=== PATIENT | female | born 1945 | race Caucasian/White ===

== ENCOUNTER 2019-05-29 15:07 | Outpatient (CLI) | payer MEDICARE, BC | END 2019-05-29 15:08 | disposition home or self-care (01) | LOC: BICMAMMO 15:07 | PROVIDERS: ATTEND Family Medicine | DX: Z53.9 Procedure and treatment not carried out, unspecified reason (principal) | CPT/HCPCS: 77080 ==

== ENCOUNTER 2019-06-13 12:57 | Outpatient (CLI) | payer MEDICARE, BC ==
--- NOTE | 2019-06-13 13:23 | RAD ---
EXAM: Right foot 3 views: HISTORY: Right foot pain and swelling COMPARISON: None FINDINGS: Minimal dorsal soft tissue swelling. Degenerative changes. No acute fracture or dislocation or other significant acute osseous abnormality. IMPRESSION: No significant acute process.
== END 2019-06-13 12:58 | disposition home or self-care (01) ==
LOC: BICRAD 12:57
PROVIDERS: ATTEND Physician Assistant
DX: M79.671 Pain in right foot (principal); M79.89 Other specified soft tissue disorders
CPT/HCPCS: 36415; 82306; 82607; 82746; 84439; 84443; 84481

== ENCOUNTER 2019-12-10 05:48 | Day surgery (SDC) | payer MEDICARE, BC ==
[2019-12-07 08:59] VITALS: BMI 25.9
[2019-12-10] MEDS ORDERED: Heparin 5,000 UNITS/ML VIAL ONE (06:21)
[2019-12-10] MEDS ORDERED: Fentanyl 250 MCG/5 ML VIAL ONE (06:25)
[2019-12-10] MEDS ORDERED: Lidocaine 1% w/Epinephrine 1:100K 20 ML VIAL ONE (06:28)
[2019-12-10] MEDS ORDERED: Gentamicin 80 MG/2 ML VIAL ONE (06:28)
[2019-12-10] MEDS ORDERED: EPINEPHrine 1 MG/ML AMP ONE ×2 (06:28→07:56)
[2019-12-10] MEDS ORDERED: Bupivacaine 0.25% HCL 30 ML VIAL ONE (06:28)
[2019-12-10] MEDS ORDERED: Sodium Chloride 0.9% 20 ML ONE (06:30)
[2019-12-10] MEDS ORDERED: PROPOFOL 20 ML ONE (07:11)
[2019-12-10] MEDS ORDERED: Lidocaine 1% PF 5 ML VIAL ONE (10:08)
[2019-12-10] MEDS ORDERED: Ondansetron PF 4 MG/2 ML Vial ONE (10:08)
[2019-12-10] MEDS ORDERED: PROPOFOL 200 MG/20 ML VIAL ONE (10:08)
[2019-12-10] MEDS ORDERED: Dexamethasone 20 MG/5 ML VIAL ONE (10:08)
[2019-12-10] MEDS ORDERED: EPHEDRINE 25 MG/5 ML SYRINGE ONE (10:08)
[2019-12-10] MEDS ORDERED: Rocuronium Bromide 10 MG/ML (10ML VIAL) ONE (10:08)
--- NOTE | 2019-12-11 09:04 | OP ---
DATE OF PROCEDURE: 12/10/2019 PREOPERATIVE DIAGNOSES: 1. Status post breast cancer. 2. Status post breast cancer reconstruction. 3. Disproportion of breast reconstruction. PROCEDURES PERFORMED: 1. Bilateral internal Joni flaps 30 cm2 (10908). 2. Right breast reconstruction fat grafting (120 mL). 3. Left breast fat grafting (100 mL). DESCRIPTION OF PROCEDURE: Following induction of adequate anesthesia, the patient was prepped and draped in usual sterile fashion in supine position. Attention was turned to the right breast reconstruction. The patient then developed pseudoptosis with overextension of the inferiror pole of the breast and descent of the inframammary crease. This was corrected by de-epithelializing a 3 x 10 ellipsed tissue on the inferior pole of the breast. The de-epithelialized tissue was then advanced superiorly to recreate a new inframammary crease with 2-0 PD interrupted and running 2-0 PDS suture in deeper layers. Defect was closed with 3-0 PDS suture and 3-0 Monocryl suture. Similar procedure was done on the left breast. The upper pole of the patient's breast with overextension in the superolateral and superomedial as well as central quadrant areas. Approximately 300 mL fat was harvested. This was allowed to decant at which time it was and injected with a micro-droplet technique around the periphery of the breast. This was done through a series of stab incisions. Similar technique was used on the contralateral breast. The patient tolerated procedure well. Job ID: [id number] [facility]
== END 2019-12-10 11:50 | disposition home or self-care (01) ==
LOC: SDC 05:48
PROVIDERS: ATTEND Plastic Surgery
PROC: 0JX60ZB Transfer Chest Subcutaneous Tissue and Fascia with Skin and Subcutaneous Tissue, Open Approach (ICD-10-PCS; principal; 2019-12-10)
DX: N65.1 Disproportion of reconstructed breast (principal); E78.00 Pure hypercholesterolemia, unspecified; Z87.891 Personal history of nicotine dependence; Z79.811 Long term (current) use of aromatase inhibitors; Z79.899 Other long term (current) drug therapy
CPT/HCPCS: J0171; J0690; J1100; J1580; J1644; J2001; J2405; J2704; J3010; J3370; J3490; S0020

== ENCOUNTER 2021-01-24 18:26 | Emergency (ER) | payer MEDICARE, BC ==
[~2021-01-24 18:26] MED LIST: Iopamidol-370 76% 500 ML 1 ML ONE
[2021-01-24 19:07] LABS: #Basophils 0.1 thou/uL (0.0-0.2); #Eosinphils 0.1 thou/uL (0.0-0.7); #Lymphocytes 2.5 thou/uL (1.20-3.40); #Monocytes 1.2 thou/uL (0.11-0.59); #Neutrophils 9.1 thou/uL (1.40-6.50); %Basophils 0.4 % (0.0-1.0); %Eosinophils 0.9 % (0.0-10.0); %Lymphocytes 19.3 % (21.0-51.0); %Monocytes 9.3 % (0.0-10.0); %Neutrophils 70.1 % (42.0-75.0); Hemoglobin 13.2 g/dL (12.0-16.0); Mean Corpuscular HGB CONC 33.3 g/dL (32.0-36.0); Mean Corpuscular Hemoglobin 31.1 pg (27.0-31.0); Mean Corpuscular Volume 93.5 fL (78.0-98.0); Mean Platelet Volume 8.5 fL (7.4-10.4); Platelet Count 255 thou/uL (130-400); RBC Distribution Width 11.9 % (11.5-14.5); Red Blood Cell (RBC) Count 4.24 mill/uL (4.20-5.40); White Blood Cell (WBC) Count 12.9 thou/uL (4.8-10.8)
[2021-01-24] MEDS ORDERED: Ondansetron PF 4 MG/2 ML Vial ONE (19:21)
[2021-01-24] MEDS ORDERED: Morphine 4 MG/ML VIAL ONE (19:21)
[2021-01-24 19:35] LABS: ALT (SGPT) 59 U/L (8-55); AST (SGOT) 120 U/L (5-34); Albumin 4.3 g/dL (3.4-4.8); Alkaline Phosphatase 114 U/L (40-110); Anion Gap 16 mmol/L (10-20); BUN (Urea Nitrogen) 12 mg/dL (9.8-20.1); Bilirubin, Total 0.9 mg/dL (0.2-1.2); Calc. Creatinine Clearance 0 mL/min (70-130); Carbon Dioxide 20 mmol/L (23-31); Chloride 105 mmol/L (98-107); Globulin 3.5 g/dL (2.4-3.5); Glucose 104 mg/dL (83-110); Lipase 56 U/L (8-78); Potassium 4.9 mmol/L (3.5-5.1); Protein, Total 7.8 g/dL (5.8-8.1); Sodium 136 mmol/L (136-145)
[2021-01-24 19:46] LABS: Bilirubin Negative (Negative); Blood, Urine Negative (Negative); Clarity Clear (Clear); Glucose, Urine (Dipstick) Normal (Negative); Ketone, Urine Negative (Negative); Leukocyte Negative Leu/uL (Negative); Nitrite Negative (Negative); Protein, Urine (Dipstick) Negative (Neg-Trace); Specific Gravity, Urine 1.017 (1.002-1.036); Urobilinogen Normal mg/dL (Less than 2); pH, Urine 6.5 (5.0-9.0)
== END 2021-01-24 20:36 | disposition home or self-care (01) ==
LOC: ERS 18:26
DX: K52.9 Noninfective gastroenteritis and colitis, unspecified (principal)
CPT/HCPCS: 74177; 80053; 81003; 83690; 85025; 96374; 96375; J2270; J2405; Q9967

== ENCOUNTER 2021-03-30 09:56 | Outpatient (CLI) | payer MEDICARE, BC | END 2021-03-30 09:57 | disposition home or self-care (01) | LOC: BICCT 09:56 | PROVIDERS: ATTEND Urology | DX: R31.29 Other microscopic hematuria (principal); N13.5 Crossing vessel and stricture of ureter without hydronephrosis; N28.1 Cyst of kidney, acquired | CPT/HCPCS: 74178; Q9967 ==

== ENCOUNTER 2021-04-03 10:07 | Emergency (ER) | payer MEDICARE, BC ==
[2021-04-03] MEDS ORDERED: Iopamidol-370 76% 500 ML 1 ML ONE (11:04)
[2021-04-03 11:07] LABS: #Eosinphils 0.1 thou/uL (0.0-0.7); #Lymphocytes 2.1 thou/uL (1.20-3.40); #Monocytes 0.7 thou/uL (0.11-0.59); #Neutrophils 3.6 thou/uL (1.40-6.50); %Basophils 0.3 % (0.0-1.0); %Eosinophils 1.5 % (0.0-10.0); %Lymphocytes 32.3 % (21.0-51.0); %Monocytes 10.3 % (0.0-10.0); %Neutrophils 55.6 % (42.0-75.0); Hemoglobin 13.4 g/dL (12.0-16.0); Mean Corpuscular HGB CONC 34.6 g/dL (32.0-36.0); Mean Corpuscular Hemoglobin 32.7 pg (27.0-31.0); Mean Corpuscular Volume 94.5 fL (78.0-98.0); Mean Platelet Volume 7.6 fL (7.4-10.4); Platelet Count 269 thou/uL (130-400); RBC Distribution Width 11.8 % (11.5-14.5); White Blood Cell (WBC) Count 6.5 thou/uL (4.8-10.8)
[2021-04-03] MEDS ORDERED: Morphine 4 MG/ML VIAL ONE (11:13)
[2021-04-03] MEDS ORDERED: Ondansetron PF 4 MG/2 ML Vial ONE (11:13)
[2021-04-03 11:28] LABS: ALT (SGPT) 29 U/L (8-55); AST (SGOT) 28 U/L (5-34); Albumin 4.3 g/dL (3.4-4.8); Alkaline Phosphatase 102 U/L (40-110); Anion Gap 12 mmol/L (10-20); BUN (Urea Nitrogen) 12 mg/dL (9.8-20.1); Bilirubin, Total 0.5 mg/dL (0.2-1.2); Calc. Creatinine Clearance 0 mL/min (70-130); Calcium 9.2 mg/dL (7.8-10.44); Carbon Dioxide 26 mmol/L (23-31); Chloride 103 mmol/L (98-107); Globulin 2.8 g/dL (2.4-3.5); Glucose 96 mg/dL (83-110); Lipase 35 U/L (8-78); Potassium 4.4 mmol/L (3.5-5.1); Protein, Total 7.1 g/dL (5.8-8.1); Sodium 137 mmol/L (136-145)
[2021-04-03 12:29] LABS: Bilirubin Negative (Negative); Blood, Urine Negative (Negative); Clarity Clear (Clear); Glucose, Urine (Dipstick) Normal (Negative); Ketone, Urine Negative (Negative); Leukocyte Negative Leu/uL (Negative); Nitrite Negative (Negative); Protein, Urine (Dipstick) Negative (Neg-Trace); Urobilinogen Normal mg/dL (Less than 2)
== END 2021-04-03 13:16 | disposition home or self-care (01) ==
LOC: ERS 10:07
DX: K85.90 Acute pancreatitis without necrosis or infection, unspecified (principal)
CPT/HCPCS: 36415; 74177; 80053; 81003; 83690; 84478; 85025; 96374; 96375; J2270; J2405

== ENCOUNTER 2021-04-06 10:36 | Outpatient (CLI) | payer MEDICARE, BC | END 2021-04-06 10:37 | disposition home or self-care (01) | LOC: NM 10:36 | PROVIDERS: ATTEND Urology | DX: N13.5 Crossing vessel and stricture of ureter without hydronephrosis (principal) | CPT/HCPCS: 78708; A4641; A9562 ==

== ENCOUNTER 2021-05-07 07:12 | Day surgery (SDC) | payer MEDICARE, BC ==
[2021-05-06 14:03] VITALS: BMI 24.3
[2021-05-07] MEDS ORDERED: Acetaminophen 500 MG TAB ONE (07:53)
[2021-05-07] MEDS ORDERED: Ketorolac Tromethamine 30 MG/ML VIAL ONE (07:53)
[2021-05-07] MEDS ORDERED: Bupivacaine 0.25% HCL 30 ML VIAL ONE (08:23)
[2021-05-07] MEDS ORDERED: EPINEPHrine 1 MG/ML AMP ONE (08:23)
[2021-05-07] MEDS ORDERED: Fentanyl 100 MCG/2 ML VIAL ONE ×3 (10:29→12:12)
[2021-05-07] MEDS ORDERED: Lidocaine 2% Jelly 5 ML TUBE ONE (10:29)
[2021-05-07] MEDS ORDERED: Rocuronium Bromide 10 MG/ML (10ML VIAL) ONE (10:46)
[2021-05-07] MEDS ORDERED: PROPOFOL 200 MG/20 ML VIAL ONE (10:46)
[2021-05-07] MEDS ORDERED: Dexamethasone 20 MG/5 ML VIAL ONE (10:46)
[2021-05-07] MEDS ORDERED: Ondansetron PF 4 MG/2 ML Vial ONE ×2 (10:46→12:12)
[2021-05-07] MEDS ORDERED: Glycopyrrolate 0.2 MG/ML 5 ML SYRINGE ONE (10:46)
[2021-05-07] MEDS ORDERED: Lidocaine 1% PF 5 ML VIAL ONE (10:46)
== END 2021-05-07 13:55 | disposition home or self-care (01) ==
LOC: SDC 07:12
PROVIDERS: ATTEND Specialist
PROC: 0FT44ZZ Resection of Gallbladder, Percutaneous Endoscopic Approach (ICD-10-PCS; principal; 2021-05-07)
DX: K80.10 Calculus of gallbladder with chronic cholecystitis without obstruction (principal); Z79.811 Long term (current) use of aromatase inhibitors; Z79.899 Other long term (current) drug therapy
CPT/HCPCS: 88304; J0171; J0690; J1100; J1885; J2405; J2704; J3010; S0020

== ENCOUNTER 2021-07-16 11:29 | Outpatient (CLI) | payer MEDICARE, BC | END 2021-07-16 11:30 | disposition home or self-care (01) | LOC: BICRAD 11:29 | PROVIDERS: ATTEND Physician Assistant | DX: M25.512 Pain in left shoulder (principal); M79.622 Pain in left upper arm; M89.8X1 Other specified disorders of bone, shoulder ==

== ENCOUNTER 2021-08-10 14:43 | Outpatient (CLI) | payer MEDICARE, BC | END 2021-08-10 14:44 | disposition home or self-care (01) | LOC: BICRAD 14:43 | PROVIDERS: ATTEND Family Medicine | DX: M54.2 Cervicalgia (principal); R05.3 Chronic cough; M47.812 Spondylosis without myelopathy or radiculopathy, cervical region; M48.07 Spinal stenosis, lumbosacral region | CPT/HCPCS: 72052 ==

== ENCOUNTER 2021-10-28 14:33 | Outpatient (CLI) | payer MEDICARE, BC | END 2021-10-28 14:34 | disposition home or self-care (01) | LOC: ULT 14:33 | PROVIDERS: ATTEND Urology | DX: N28.1 Cyst of kidney, acquired (principal) | CPT/HCPCS: 76770 ==

== ENCOUNTER 2022-03-20 11:37 | Emergency (ER) | payer MEDICARE, BC ==
[2022-03-20 12:20] LABS: Hemoglobin 13.9 g/dL (12.0-16.0); Mean Corpuscular HGB CONC 32.9 g/dL (32.0-36.0); Mean Corpuscular Hemoglobin 31.2 pg (27.0-31.0); Mean Platelet Volume 7.5 fL (7.4-10.4); Platelet Count 252 thou/uL (130-400); RBC Distribution Width 12.2 % (11.5-14.5); Red Blood Cell (RBC) Count 4.44 mill/uL (4.20-5.40)
[2022-03-20 12:27] LABS: PTT 30.8 sec (22.9-36.1)
[2022-03-20 12:34] LABS: Band 7 % (5-11); Eosinophils 1 % (0-10); Lymphocytes 4 % (21-51); MDiff Complete? YES; Monocytes 5 % (0-10); Neutrophil 82 % (42-75); Platelet Morphology Comment Appears Adequate; RBC Morphology Normal; Reactive Lymphocytes 1 % (0-10)
[2022-03-20 12:35] LABS: Bacteria/HPF None Seen HPF (None Seen); Bilirubin Negative (Negative); Blood, Urine Trace (Negative); Clarity Clear (Clear); Glucose, Urine (Dipstick) Normal (Negative); Ketone, Urine Negative (Negative); Leukocyte 75 Leu/uL (Negative); Nitrite Negative (Negative); Protein, Urine (Dipstick) 20 mg/dL (Neg-Trace); RBC/HPF 0-3 HPF (0-3); Specific Gravity, Urine 1.022 (1.002-1.036); Squamous Epithelial 0-3 HPF (0-3); Urobilinogen Normal mg/dL (Less than 2); pH, Urine 6.5 (5.0-9.0)
[2022-03-20 12:38] LABS: ALT (SGPT) 20 U/L (8-55); AST (SGOT) 21 U/L (5-34); Alkaline Phosphatase 90 U/L (40-110); Anion Gap 16 mmol/L (10-20); BUN (Urea Nitrogen) 14 mg/dL (9.8-20.1); Bilirubin, Total 1.5 mg/dL (0.2-1.2); Calc. Creatinine Clearance 0 mL/min (70-130); Carbon Dioxide 20 mmol/L (23-31); Chloride 101 mmol/L (98-107); Globulin 3.4 g/dL (2.4-3.5); Glucose 123 mg/dL (83-110); Potassium 3.8 mmol/L (3.5-5.1); Protein, Total 7.4 g/dL (5.8-8.1); Sodium 133 mmol/L (136-145)
[2022-03-20] MEDS ORDERED: Ketorolac Tromethamine 30 MG/ML VIAL ONE (12:42)
[2022-03-20] MEDS ORDERED: Acetaminophen 500 MG TAB ONE (12:42)
[2022-03-20 16:27] LABS: Lactic Acid 2.6 mmol/L (0.5-2.2)
[2022-03-20 21:26] LABS: SARS-CoV-2 NAA Rapid Test Not Detected (NotDetected)
== END 2022-03-20 16:25 | disposition home or self-care (01) ==
LOC: ERS 11:37
DX: B34.9 Viral infection, unspecified (principal); K21.9 Gastro-esophageal reflux disease without esophagitis; Z79.899 Other long term (current) drug therapy; Z20.822 Contact with and (suspected) exposure to COVID-19
CPT/HCPCS: 0240U; 71045; 80053; 83605; 85025; 85610; 85730; 87040; 87081; 87086; 87430; 93005; 94760; 36415; 81003; 81015; 96374; J1885

== ENCOUNTER 2022-03-24 12:24 | Outpatient (CLI) | payer MEDICARE, BC ==
[~2022-03-24 12:24] MED LIST changes: +Iopamidol 370 76% 100 ML VIAL ONE; -Iopamidol-370 76% 500 ML 1 ML ONE
== END 2022-03-24 12:25 | disposition home or self-care (01) ==
LOC: CT 12:24
PROVIDERS: ATTEND Nurse Practitioner Family
DX: R10.32 Left lower quadrant pain (principal); R50.9 Fever, unspecified; R31.9 Hematuria, unspecified; D72.828 Other elevated white blood cell count; R79.89 Other specified abnormal findings of blood chemistry
CPT/HCPCS: 74178; 80053; 81001; 85025; 87086; Q9967

== ENCOUNTER 2022-05-04 14:28 | Outpatient (CLI) | payer MEDICARE, BC | END 2022-05-04 14:29 | disposition home or self-care (01) | LOC: BICMAMMO 14:28 | PROVIDERS: ATTEND Plastic Surgery | DX: N63.24 Unspecified lump in the left breast, lower inner quadrant (principal); Z85.3 Personal history of malignant neoplasm of breast | CPT/HCPCS: 77066; G0279 ==

== ENCOUNTER 2022-05-10 09:33 | Outpatient (CLI) | payer MEDICARE, BC ==
[~2022-05-10 09:33] MED LIST changes: -Iopamidol 370 76% 100 ML VIAL ONE; +Iopamidol-370 76% 500 ML 1 ML ONE
== END 2022-05-10 09:34 | disposition home or self-care (01) ==
LOC: BICCT 09:33
PROVIDERS: ATTEND Urology
DX: N28.1 Cyst of kidney, acquired (principal)
CPT/HCPCS: 74170; 82565; Q9967

== ENCOUNTER 2022-05-11 13:29 | Outpatient (CLI) | payer MEDICARE, BC | END 2022-05-11 13:30 | disposition home or self-care (01) | LOC: BICMRI 13:29 | PROVIDERS: ATTEND Plastic Surgery | DX: R92.8 Other abnormal and inconclusive findings on diagnostic imaging of breast (principal); N63.20 Unspecified lump in the left breast, unspecified quadrant | CPT/HCPCS: A9577; C8908 ==

== ENCOUNTER 2022-08-30 09:52 | Outpatient (CLI) | payer MEDICARE, BC | END 2022-08-30 09:53 | disposition home or self-care (01) | LOC: EKG 09:52 | PROVIDERS: ATTEND Otolaryngology Plastic Surgery within the Head & Neck | DX: H90.A31 Mixed conductive and sensorineural hearing loss, unilateral, right ear with restricted hearing on the contralateral side (principal) | CPT/HCPCS: 93005; 93010 ==

== ENCOUNTER 2022-11-04 15:27 | Outpatient (CLI) | payer MEDICARE, BC | END 2022-11-04 15:28 | disposition home or self-care (01) | LOC: ULT 15:27 | PROVIDERS: ATTEND Family Medicine | DX: R79.1 Abnormal coagulation profile (principal) ==

== ENCOUNTER 2022-11-16 15:14 | Outpatient (CLI) | payer MEDICARE, BC | END 2022-11-16 15:15 | disposition home or self-care (01) | LOC: RAD 15:14 | PROVIDERS: ATTEND Internal Medicine Rheumatology | DX: R06.02 Shortness of breath (principal); M35.00 Sjogren syndrome, unspecified; M54.50 Low back pain, unspecified; M47.816 Spondylosis without myelopathy or radiculopathy, lumbar region; J98.4 Other disorders of lung; Z86.11 Personal history of tuberculosis | CPT/HCPCS: 71046; 72100 ==

== ENCOUNTER 2022-12-13 14:53 | Outpatient (CLI) | payer MEDICARE, BC | END 2022-12-13 14:54 | disposition home or self-care (01) | LOC: BICRAD 14:53 | PROVIDERS: ATTEND Internal Medicine Rheumatology | DX: M25.531 Pain in right wrist (principal); M25.532 Pain in left wrist ==

== ENCOUNTER 2023-01-26 10:39 | Outpatient (CLI) | payer MEDICARE, BC | END 2023-01-26 10:40 | disposition home or self-care (01) | LOC: BICMAMMO 10:39 | PROVIDERS: ATTEND Internal Medicine Hematology & Oncology | DX: Z13.820 Encounter for screening for osteoporosis (principal); C50.811 Malignant neoplasm of overlapping sites of right female breast; T38.6X5A Adverse effect of antigonadotrophins, antiestrogens, antiandrogens, not elsewhere classified, initial encounter; M85.89 Other specified disorders of bone density and structure, multiple sites | CPT/HCPCS: 77080 ==

== ENCOUNTER 2023-05-09 11:19 | Outpatient (CLI) | payer MEDICARE, BC | END 2023-05-09 11:20 | disposition home or self-care (01) | LOC: BICCT 11:19 | PROVIDERS: ATTEND Urology | DX: N13.5 Crossing vessel and stricture of ureter without hydronephrosis (principal); N28.1 Cyst of kidney, acquired; R31.29 Other microscopic hematuria; J81.1 Chronic pulmonary edema | CPT/HCPCS: 74178; 82565 ==

== ENCOUNTER 2023-11-17 13:23 | Outpatient (CLI) | payer MEDICARE, BC | END 2023-11-17 13:24 | disposition home or self-care (01) | LOC: MRI 13:23 | PROVIDERS: ATTEND Family Medicine | DX: R42 Dizziness and giddiness (principal) | CPT/HCPCS: 70553 ==

== ENCOUNTER 2024-04-03 13:52 | Outpatient (CLI) | payer MEDICARE, BC | END 2024-04-03 13:53 | disposition home or self-care (01) | LOC: BICRAD 13:52 | DX: M62.838 Other muscle spasm (principal); M47.812 Spondylosis without myelopathy or radiculopathy, cervical region | CPT/HCPCS: 72050 ==

== ENCOUNTER 2024-04-18 13:48 | Outpatient (CLI) | payer MEDICARE, BC | END 2024-04-18 13:49 | disposition home or self-care (01) | LOC: ULT 13:48 | PROVIDERS: ATTEND Otolaryngology Plastic Surgery within the Head & Neck | DX: E04.2 Nontoxic multinodular goiter (principal) | CPT/HCPCS: 76536 ==

== ENCOUNTER 2024-05-02 10:56 | Outpatient (CLI) | payer MEDICARE, BC | END 2024-05-02 10:57 | disposition home or self-care (01) | LOC: BICCT 10:56 | PROVIDERS: ATTEND Urology | DX: N28.1 Cyst of kidney, acquired (principal); R31.29 Other microscopic hematuria | CPT/HCPCS: 74178; 82565 ==

== ENCOUNTER 2024-09-18 10:27 | Outpatient (CLI) | payer MEDICARE, BC | END 2024-09-18 10:28 | disposition home or self-care (01) | LOC: BICCT 10:27 | PROVIDERS: ATTEND Urology | DX: N28.1 Cyst of kidney, acquired (principal); R31.29 Other microscopic hematuria; R16.0 Hepatomegaly, not elsewhere classified; M81.0 Age-related osteoporosis without current pathological fracture | CPT/HCPCS: 36415; 74178; 82565 ==

== ENCOUNTER 2025-08-15 14:28 | Outpatient (CLI) | payer MEDICARE, BC | END 2025-08-15 14:29 | disposition home or self-care (01) | LOC: BICRAD 14:28 | PROVIDERS: ATTEND Family Medicine | DX: J18.8 Other pneumonia, unspecified organism (principal) | CPT/HCPCS: 71046 ==

== ENCOUNTER 2025-09-24 09:03 | Outpatient (CLI) | payer MEDICARE, BC ==
[2025-09-24] MEDS ORDERED: Iopamidol 370 76% 100 ML VIAL ONE (09:09)
== END 2025-09-24 09:04 | disposition home or self-care (01) ==
LOC: CT 09:03
PROVIDERS: ATTEND Family Medicine
DX: J18.8 Other pneumonia, unspecified organism (principal)
CPT/HCPCS: 71260